=== PATIENT | female | born 1935 | race Caucasian/White ===

== ENCOUNTER → 2018-11-06 | Outpatient (CLI) | payer OTHER, MEDICARE ==
[~2018-11-06] VITALS: Ht 160 cm; Wt 59.0 kg
[~2018-11-06] MED LIST: CLARITIN10 MG PO; FLONASE 0.05%50 MCG NASAL; KLOR-CON M2020 MEQ PO; LASIX 40 MG TAB40 M2 PO; MAGOX 400400 MG PO; OXYCODONE HCL E10 MG PO; OXYCODONE-ACET1 EAC2 PO; OXYCODONE-ACET1 EACH PO; PEPCID20 MG PO; PERCOCET 10-321 EACH PO; SLOW-MAG64 M1 PO; SYNTHROID75 MCG PO; VITAMIN D3400 UNI2 PO; XARELTO15 MG PO; ZOLOFT50 MG PO
[2018-11-06 14:13] VITALS: BP 95/61
--- NOTE | 2018-11-08 15:34 | HPC ---
[facility] [address] [place] [address] PAIN MANAGEMENT CONSULTATION Name: HERVE ALVAREZ [id number] Admission: 11/06/18 Attend Phys: Romie Puga MD Discharge: Date of : 37 Report #: [id number] THIS REPORT FOR: //name// CC: DARA Lott Physician staff Romie Puga DATE OF SERVICE: 11/06/2018 The patient returns to the pain clinic today in followup. She was last seen at [facility] for medication management in May. She remains in chronic pain. She complains of pain primarily on her left hip, radiating down her left leg. We have difficulty in determining her exact pain generator, although it appears to be radiculopathy along with myofascial components. She has in the past responded to both epidural injections as well as to local injections around the ischial bursa. She has had some steady decline over the course of the last 2 years. She comes to me today on 2 liters nasal oxygen cannula, which she wears 24 hours a day. She has congestive heart failure, following with Dr. Lott. He has been managing her edema, which has worsened significantly. She complains of edema and discomfort in her legs as well today. MEDICATIONS: Oxycodone 10/325 one tablet 4 times daily, Xarelto 15 mg daily, levothyroxine, magnesium oxide, Lasix, sertraline, famotidine, magnesium chloride, vitamin D and loratadine. ALLERGIES: NAPROXEN AND MORPHINE. PAST MEDICAL HISTORY: Remarkable for bilateral knee replacements; two previous lumbar surgeries, the last 6 years ago; tonsillectomy; hemorrhoidectomy and hysterectomy. She suffers from congestive heart failure, hypertension, asthma and lung disease. She has had a recent TIA. REVIEW OF SYSTEMS: Positive for fatigue, weakness, edema, weight gain with fluid, shortness of breath, dyspnea on exertion, orthopnea nocturia, memory loss, nervousness and depression. PHYSICAL EXAMINATION: GENERAL: She is in a wheelchair. She is a bit dyspneic at rest, despite the oxygen. VITAL SIGNS: Blood pressure is 135/88. CHEST: Clear. CARDIAC: Rhythm is regular. [facility] [address] [place] [address] PAIN MANAGEMENT CONSULTATION Name: HERVE ALVAREZ Room #: [facility].#: [id number] Admission: 11/06/18 Attend Phys: Romie Puga MD Discharge: Date of : 37 Report #: [id number] ABDOMEN: Soft. EXTREMITIES: A 2+ edema is noted in the lower extremities. Tenderness around the ischium. Straight leg raising is positive. RADIOLOGIC DATA: She does have MRI evidence showing edema around the left gemellus inferior and obturator internus, suggesting a friction entrapment syndrome. This extends around the adjacent sciatic nerve origin. IMPRESSION: 1. 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 2. Management of high-risk medications under terms of written opioid agreement. I renewed her oxycodone 10/325 one tablet 4 times daily. Prescriptions were written for release at 4 and 8 weeks. She is not a candidate currently for injections. An opioid agreement has been signed. She was instructed to safeguard her medications carefully. <ELECTRONICALLY SIGNED> By: Romie Puga MD 11/08/18 [id number] Romie Puga MD /nt
== END ==
LOC: PAIN 07:16
DX: M54.16 Radiculopathy, lumbar region (principal); G89.4 Chronic pain syndrome; M25.552 Pain in left hip; Z79.891 Long term (current) use of opiate analgesic; Z79.899 Other long term (current) drug therapy